=== PATIENT | female | born 1985 | race Caucasian/White ===

== ENCOUNTER 2018-03-11 13:37 | Emergency (ER) | payer OTHER ==
[2018-03-11] MEDS ORDERED: LISI5TAB25 PO (13:45)
[2018-03-11] MEDS ORDERED: SPIR25TA78 PO (13:45)
--- NOTE | 2018-03-11 13:46 | ER Report ---
History and Physical Time Seen By MD: 13:46 Hx. of Stated Complaint: SENT OVER BY URGENT CARE. DISLOCATED SHOULDER FROM MOUNTAIN BIKING. NO OTHER INJURIES PER PT HPI/ROS CHIEF COMPLAINT: Fall with left shoulder pain HISTORY OF PRESENT ILLNESS: 32-year-old female patient presents to emergency room with complaint of a fall with left shoulder pain. Patient states that she was mountain biking this afternoon. She recommended fell on her left arm outstretched. Patient states she had significant amounts of pain at that time. She was placed in a sling and taken to urgent care. While there they got an x- ray and noted that she had a posterior dislocation. They recommended she come here for evaluation. Patient states she does have some numbness and tingling to the medial aspect of the left arm, including the fourth and fifth fingers on the left hand. REVIEW OF SYSTEMS: Respiratory: No cough, no dyspnea. Cardiovascular: No chest pain, no palpitations. Gastrointestinal: No vomiting, no abdominal pain. Musculoskeletal: As noted above Allergies: Coded Allergies: No Known Drug Allergies (Unverified , 03/11/18) Home Meds Active Scripts Hydrocodone Bit/Acetaminophen (HYDROCODON-ACETAMINOPHEN 5-325) 1 Each Tablet, 1 EACH PO Q4-6H Y for PAIN, #12 TAB Prov:EZESEAN KARINA 03/11/18 Reported Medications Spironolactone (SPIRONOLACTONE) 25 Mg Tablet, 25 MG PO, TAB 03/11/18 Lisinopril (LISINOPRIL) 5 Mg Tablet, 5 MG PO QDAY, TAB 03/11/18 Past Medical/Surgical History Patient has a past medical history of hypertension, dislocated kneecap 2. Patient denies any surgical history. Reviewed Nurses Notes: Yes Constitutional Vital Sign - Last 24 Hours 03/11/18 03/11/18 03/11/18 03/11/18 13:41 14:40 14:45 15:33 Pulse 75 84 65 108 Resp 14 16 11 13 B/P (MAP) 140/88 144/91 (108) 106/78 (87) 125/93 (104) Pulse Ox 99 100 100 100 O2 Delivery Room Air Nasal Cannula Nasal Cannula Nasal Cannula O2 Flow Rate 2 2 2 03/11/18 03/11/18 15:34 15:45 Pulse 59 68 Resp 10 14 B/P (MAP) 148/83 (104) 128/62 (84) Pulse Ox 100 100 O2 Delivery Nasal Cannula Room Air O2 Flow Rate 2 Physical Exam General Appearance: The patient is alert, has no immediate need for airway protection and no current signs of toxicity. ENT: Mucous membranes are moist. Respiratory: Chest is non tender, lungs are clear to auscultation. Cardiac: regular rate and rhythm Gastrointestinal: Abdomen is soft and non tender, no masses, bowel sounds normal. Musculoskeletal: Neck: Neck is supple and non tender. Extremities have full range of motion and are non tender. Patient has obvious dislocation of the left shoulder, does appear to be an anterior dislocation, patient does have tingling to the fourth and fifth fingers of left hand. Skin: No rashes or lesions. DIFFERENTIAL DIAGNOSIS: After history and physical exam differential diagnosis was considered for shoulder dislocation, fracture. Medical Decision Making EKG/Imaging Imaging Examination: SHOULDER MIN 2 VIEWS LEFT Comparison: Earlier the same day. History: fall with pain Findings: Left glenohumeral joint posterior dislocation with the humeral head dislocated posteriorly, internally rotated, and likely impacted on the posterior glenoid. Acromioclavicular and coracoclavicular alignment is within normal limits. Visualized portions of the lungs are clear. IMPRESSION: Left glenohumeral joint posterior dislocation with impaction of the humeral head on the glenoid. Report Dictated By: Noe House MD at 03/11/2018 2:38 PM Report E-Signed By: Noe House MD at 03/11/2018 2:42 PM SHOULDER MIN 2 VIEWS LEFT Indication: Shoulder pain. Reduction. Comparison: Images from earlier today are reviewed. Findings: 2 views of the left shoulder are submitted. The posterior dislocation of the left glenohumeral joint is felt to be reduced. This is best appreciated on the scapular Y view. There is a suspected impaction type deformity involving the humeral head which in the setting of a posterior dislocation typically involves the lesser tuberosity. Acromioclavicular joint is normally aligned. IMPRESSION: 1. Reduced left shoulder posterior dislocation. 2. Impaction type deformity involving the left humeral head (reverse Hill-Sachs deformity). Report Dictated By: Freedom Goff at 03/11/2018 3:08 PM Report E-Signed By: Freedom Goff at 03/11/2018 3:11 PM ED Course/Re-evaluation ED Course Patient was admitted to an exam room, history and physical were obtained. Differential diagnoses were considered. On examination patient has obvious dislocation of the left shoulder, she rates her pain a 8-9 out of 10. X-rays done of the left shoulder as I was unable to get the disc to work that was sent from urgent care. X-ray shows a posterior dislocation with a reverse Hill-Sachs deformity. An IV was started, patient received 4 mg of morphine, we did get her to sign a consent for conscious sedation. Conscious sedation was done as described below, shoulder was reduced as described below. Patient tolerated procedure well. She woke up and rates her pain a 2 out of 10. She states the numbness and tingling in the hand are gone. Patient had brisk capillary refill. Patient was placed in a sling and will be discharged home at this time. She is return to the emergency room if condition worsens. She is follow-up with orthoped[facility] and [facility]. Patient verbalized understanding and agreement with plan. Patient was given a limited supply of pain medication. Procedure: Procedural sedation. A pre-sedation evaluation was completed on the patient at 1420. Patient is an appropriate candidate for procedural sedation. The risks of the sedation were discussed with the patient. A time out was completed. The patient was reevaluated immediately prior to initiation of sedation. The patient was sedated with 150 mg of propofol. The patient was monitored with continuous pulse oximetry and sales compensation analyst. There were no complications and no significant hypoxemia. I remained at the bedside for the sedation. The total time I spent in the procedural sedation was 10 minutes. Post sedation evaluation: Patient was alert and cooperative, hemodynamically stable with appropriate respiratory status, temperature and pain control without ongoing nausea and vomiting. This was performed by Dr. Bhandari. Procedure: Dislocation reduction. The shoulder was reduced in the usual fashion without complications. Post reduction the patient's neurovascular exam is normal. Post reduction x-ray demonstrates reduction of the joint to the anatomic position. The procedure was performed by myself under the direct supervision of Dr. Bhandari. Decision to Disposition Date: Mar 11, 2018 Decision to Disposition Time: 15:30 Depart Departure Latest Vital Signs Vital Signs Date Time Temp Pulse Resp B/P (MAP) Pulse Ox O2 Delivery O2 Flow Rate FiO2 03/11/18 15:45 68 14 128/62 (84) 100 Room Air 6/2/18 15:34 2 Impression: Primary Impression: Shoulder dislocation Additional Impression: Hill-Sachs fracture of left humerus Condition: Improved Disposition: HOME OR SELF-CARE New Scripts Hydrocodone Bit/Acetaminophen (HYDROCODON-ACETAMINOPHEN 5-325) 1 Each Tablet 1 EACH PO Q4-6H Y for PAIN, #12 TAB Prov: SEAN LOO 03/11/18 Patient Instructions: Shoulder Dislocation (ED) Additional Instructions: Limit activity by pain. Wear sling 23/24 hours a day. Follow up with [facility], Call on Tuesday to make an appointment. Return to the ER if condition worsens. You may take Ibuprofen in addition to the pain medication. Problem Qualifiers Primary Impression: Shoulder dislocation Encounter type: initial encounter Laterality: left Qualified Codes: S43.005A - Unspecified dislocation of left shoulder joint, initial encounter Additional Impression: Hill-Sachs fracture of left humerus Encounter type: initial encounter Fracture type: closed Qualified Codes: S42.292A - Other displaced fracture of upper end of left humerus, initial encounter for closed fracture SEAN LOO Mar 11, 2018 13:46
[2018-03-11] MEDS ORDERED: NS(*) 0.9% 1000 ML BAG 1,000 ML IV ONE (13:55)
[2018-03-11] MEDS ORDERED: PROPOFOL EMUL 10MG/ML 20 ML VL IVP ONE (13:55)
[2018-03-11] MEDS ORDERED: MORPHINE 4 MG/ML SDV IVP ONE (13:55)
[2018-03-11] MEDS ORDERED: ONDANSETRON 4 MG/2 ML VIAL ONE (14:12)
--- NOTE | 2018-03-11 14:46 | RADIOLOGY IMAGING REPORT ---
FACILITY: [facility] - [place] PATIENT NAME: Trcay Louis : 1985 MR: [id number] V: [id number] EXAM DATE: ORDERING PHYSICIAN: SEAN LOO TECHNOLOGIST: Location: [facility] Patient: Tracy Louis : 1985 Visit/Account:[id number] Date of Sevice: 03/11/2018 Examination: SHOULDER MIN 2 VIEWS LEFT Comparison: Earlier the same day. History: fall with pain Findings: Left glenohumeral joint posterior dislocation with the humeral head dislocated posteriorly, internally rotated, and likely impacted on the posterior glenoid. Acromioclavicular and coracoclavic ular alignment is within normal limits. Visualized portions of the lungs are clear. IMPRESSION: Left glenohumeral joint posterior dislocation with impaction of the humeral head on the glenoid. Report Dictated By: Noe House MD at 03/11/2018 2:38 PM Report E-Signed By: Noe House MD at 03/11/2018 2:42 PM WSN:[id number]
--- NOTE | 2018-03-11 15:15 | RADIOLOGY IMAGING REPORT ---
FACILITY: [facility] - [place] PATIENT NAME: Tracy Louis : 1985 MR: [id number] V: [id number] EXAM DATE: ORDERING PHYSICIAN: SEAN LOO TECHNOLOGIST: Location: [facility] [place] Patient: Tracy Louis : 1985 Visit/Account:[id number] Date of Sevice: 03/11/2018 SHOULDER MIN 2 VIEWS LEFT Indication: Shoulder pain. Reduction. Comparison: Images from earlier today are reviewed. Findings: 2 views of the left shoulder are submitted. The posterior dislocation of the left glenohumeral joint is felt to be reduced. This is best apprecia jordyn on the scapular Y view. There is a suspected impaction type deformity involving the humeral head which in the setting of a posterior dislocation typically involves the lesser tuberosity. Acromioclav icular joint is normally aligned. IMPRESSION: 1. Reduced left shoulder posterior dislocation. 2. Impaction type deformity involving the left humeral head (reverse Hill-Sachs deformity). Report Dictated By: Freedom Goff at 03/11/2018 3:08 PM Report E-Signed By: Freedom Goff at 03/11/2018 3:11 PM [id number]
[2018-03-11] MEDS ORDERED: HYDR-385 PO (15:27)
[2018-03-11 15:45] VITALS: BP 128/62
== END 2018-03-11 15:44 | disposition home or self-care (01) ==
LOC: ER 13:48
DX: S43.005A Unspecified dislocation of left shoulder joint, initial encounter (principal); S42.292A Other displaced fracture of upper end of left humerus, initial encounter for closed fracture; V19.9XXA Pedal cyclist (driver) (passenger) injured in unspecified traffic accident, initial encounter
CPT/HCPCS: 23650; 73030; 99152; 99285; J2270; J2405; J2704; J7030